=== PATIENT | female | born 1995 | race Caucasian/White ===

== ENCOUNTER 2018-12-22 07:56 | Emergency (ER) | payer OTHER ==
[~2018-12-22] VITALS: Ht 124.5 cm; Wt 44.0 kg
[2018-12-22 08:19] VITALS: BP 101/67
--- NOTE | 2018-12-22 08:26 | NUR ---
PATIENT AMBULATED TO BED 4.
--- NOTE | 2018-12-22 08:26 | NUR ---
PT TO ER BED 4
--- NOTE | 2018-12-22 08:30 | NUR ---
PATIENT PRESENTS TO ED WITH LEFT ANKLE PAIN S/P TWISTED ANKLE WHILE WALKING DOWN STAIRS YESTERDAY. PATIENT STATES PAIN OF 10/10 AT THIS TIME; VSS; PATIENT POSITIONED FOR COMFORT; HOB ELEVATED; BEDRAILS UP X2; BED DOWN. ER MD MADE AWARE OF PT STATUS.
--- NOTE | 2018-12-22 08:36 | NUR ---
Patient being evaluated by physician at bedside.
--- NOTE | 2018-12-22 08:52 | NUR ---
X-RAY DONE AT BEDSIDE.
[2018-12-22 09:28] VITALS: BP 101/67
--- NOTE | 2018-12-22 09:28 | NUR ---
Patient discharged with v/s stable. Written and verbal after care instructions given and explained. Rx of NAPROSYN given. Patient educated on indication of medication including possible reaction and side effects. ID band removed. Patient advised to follow up with PMD.
== END 2018-12-22 09:28 | disposition home or self-care (01) ==
LOC: MED 07:56
DX: S93.401A Sprain of unspecified ligament of right ankle, initial encounter (principal); X58.XXXA Exposure to other specified factors, initial encounter; Y93.01 Activity, walking, marching and hiking; Y92.89 Other specified places as the place of occurrence of the external cause; Y99.8 Other external cause status
CPT/HCPCS: 73610; 99283; Q0092

== ENCOUNTER 2019-08-16 23:57 | Emergency (ER) | payer OTHER ==
[~2019-08-16] VITALS: Ht 160 cm; Wt 43.1 kg
[2019-08-17 00:05] VITALS: BP 128/74
--- NOTE | 2019-08-17 00:12 | NUR ---
PT TAKEN TO BED 6
--- NOTE | 2019-08-17 00:24 | NUR ---
23 YEAR OLD FEMALE COMPLAINS OF VAGINAL BLEEDING X 2 DAYS. PATIENT STATES THAT SHE WENT TO [facility] EARLIER IN THE DAY AND THEY STATED THAT SHE HAD A THREATENDED MISCARRIAGE AND THE ULTRASOUND SHOWED NO CARDIAC RHYTHM. PATIENT STATES THAT SHE HAS HAD MORE BLEEDING SINCE HER VISIT EARLIER TODAY AND THAT SHE HAS CHANGED HER PADS 3X TODAY AND THEY WERE SATURATED WITH BLOOD. PATIENT STATES 5/10 CRAMPING PAIN PRESENT IN HER ABDOMEN. PATIENT DENIES NAUSEA, VOMITTING, AND DIARRHEA. PATIENT LAST MENSTRUAL PERIOD May, STATES SHE IS 11 WEEKS INTO . PATIENT ALERT AND ORIENTED, BREATHING EVEN AND UNLABORED, SKIN WARM AND DRY. AT BEDSIDE. BED IN LOWEST POSITION, LOCKED, BED RAIL UPX1. PMH - DENIES MEDICATIONS - NONE
--- NOTE | 2019-08-17 00:32 | NUR ---
PER DR JENKINS, BLOOD DRAW AND US CANCELLED. RISK OFFICER AND US TECH MADE AWARE.
--- NOTE | 2019-08-17 00:32 | NUR ---
PER DR JENKINS, [facility]A COLLECTION CANCELLED
--- NOTE | 2019-08-17 00:32 | NUR ---
Dr. Vasquez examining patient.
[2019-08-17 01:01] VITALS: BP 128/74
--- NOTE | 2019-08-17 01:01 | NUR ---
Patient discharged with v/s stable. Written and verbal after care instructions given and explained. Patient verbalized understanding. Ambulatory with steady gait. All questions addressed prior to discharge. Advised to follow up with PMD.
== END 2019-08-17 01:01 | disposition home or self-care (01) ==
LOC: MED 23:57
DX: O46.91 Antepartum hemorrhage, unspecified, first trimester (principal); Z3A.01 Less than 8 weeks gestation of pregnancy
CPT/HCPCS: 99281